=== PATIENT | female | born 1975 | race Two or more races ===

== ENCOUNTER 2022-09-21 11:53 | Outpatient (CLI) | payer OTHER | END 2022-09-21 12:00 | disposition home or self-care (01) | LOC: MAMO-SONO 11:53 | PROVIDERS: ATTEND Obstetrics & Gynecology | DX: N63.0 Unspecified lump in unspecified breast (principal); N64.4 Mastodynia; Z12.31 Encounter for screening mammogram for malignant neoplasm of breast ==

== ENCOUNTER 2022-09-21 13:45 | Outpatient (CLI) | payer OTHER | END 2022-09-21 13:47 | disposition home or self-care (01) | LOC: NUCLEAR 13:45 | PROVIDERS: ATTEND Obstetrics & Gynecology | DX: M81.0 Age-related osteoporosis without current pathological fracture (principal) ==

== ENCOUNTER 2022-11-17 10:17 | Outpatient (CLI) | payer OTHER | END 2022-11-17 10:24 | disposition home or self-care (01) | LOC: TOM 10:17 | PROVIDERS: ATTEND Obstetrics & Gynecology | DX: R16.2 Hepatomegaly with splenomegaly, not elsewhere classified (principal); R10.30 Lower abdominal pain, unspecified; N94.89 Other specified conditions associated with female genital organs and menstrual cycle; D25.9 Leiomyoma of uterus, unspecified ==